=== PATIENT | male | born 1965 | race Caucasian/White ===

== ENCOUNTER 2016-05-27 07:26 | Day surgery (SDC) | payer BC, OTHER ==
[2016-05-23 15:14] VITALS: BMI 37.5
[~2016-05-27 07:26] MED LIST: LACTATED RINGERS 1,000 ML IV SCH
[2016-05-27 07:51] VITALS: TEMP 97.3
[2016-05-27] MEDS ORDERED: LIDOCAINE 1% 20 ML VIAL (10MG/ML) FOR IV START INTRADERMA ONE (07:52)
[2016-05-27 08:07] LABS: Glucose,Whole Blood 154 mg/dL (75-99)
[2016-05-27] MEDS ORDERED: PROPOFOL 10 MG/ML 20 ML VIAL IV ONE (08:19)
[2016-05-27] MEDS ORDERED: LIDOCAINE 1% INJ 10MG/ML (20 ML MDV) ONE (08:19)
--- NOTE | 2016-05-27 08:58 | P.PCN ---
Date of Procedure: 05/27/16 Procedure(s) Performed: Procedure: Colonoscopy and biopsy. Preoperative diagnosis: Screening for neoplasia. Postoperative diagnosis: 2 small polyps in the sigmoid and rectum biopsied but no large polyps or cancer. Preparation: HalfLytely prep. Sedation: Was provided by anesthesia. Brief clinical history: The patient is a 50-year-old male who is referred for this evaluation for screening for neoplasia age being his risk factor. He has no abdominal complaints, bleeding or anemia. No family history of colon cancer. This would be his first colonoscopy. Procedure: With the patient on his left lateral decubitus position and after informed consent and adequate sedation, the perianal area was inspected and it did not show any fissures or fistulas. There were no masses felt on digital rectal examination. The Olympus CFQ 160L video colonoscope was then inserted in the rectum in the usual fashion and advanced to the cecum. The preparation was less than ideal in the cecum with thick, sticky fecal secretions and debris that did not wash off totally despite prolonged cleaning. Elsewhere, the preparation was better and I was able to see 2 small polyps one in the sigmoid and one in the rectum which were biopsied but there were no large polyps or cancer. I retroflexed endoscope in the rectum before the endoscope was withdrawn. The patient tolerated the procedure well. Plan: The patient was reassured. In light of his less than ideal preparation in the cecum and the finding of small polyps today, I am recommending repeat exam in 3-5 years based on the pathology results. He will follow up with you as planned.
[2016-05-27 10:09] VITALS: BP 125/76; PULSE 77; RESP 18
== END 2016-05-27 09:41 | disposition home or self-care (01) ==
LOC: ORWHC2ENDO 07:26
DX: Z12.11 Encounter for screening for malignant neoplasm of colon (principal); K63.5 Polyp of colon; K62.1 Rectal polyp; I25.10 Atherosclerotic heart disease of native coronary artery without angina pectoris; I10 Essential (primary) hypertension; E78.5 Hyperlipidemia, unspecified; J44.9 Chronic obstructive pulmonary disease, unspecified; G47.33 Obstructive sleep apnea (adult) (pediatric); E11.9 Type 2 diabetes mellitus without complications; Z79.84 Long term (current) use of oral hypoglycemic drugs; E66.9 Obesity, unspecified; Z68.37 Body mass index [BMI] 37.0-37.9, adult; Z95.5 Presence of coronary angioplasty implant and graft; Z79.02 Long term (current) use of antithrombotics/antiplatelets; Z79.82 Long term (current) use of aspirin; Z79.899 Other long term (current) drug therapy
CPT/HCPCS: 88305; 45380; J2001; J2704; 99153

== ENCOUNTER → 2017-01-08 | Outpatient (CLI) | payer BC ==
--- NOTE | 2017-01-09 11:12 | CONS ---
DATE OF CONSULTATION: 01/08/2017 A 51-year-old gentleman had been evaluated in the sleep center for possible obstructive sleep apnea-hypopnea syndrome. HISTORY OF PRESENT ILLNESS/SLEEP-WAKE EVALUATION: SLEEP SCHEDULE: Patient's usual sleep schedule on working days from around 10 p.m. until 5:30 to 6:15 a.m. and on weekends from 11 p.m. until 6 or 7 a.m. FALLING ASLEEP: No problems with falling asleep. No TV in bedroom. DURING SLEEP: She usually sleeps on the side position. According to his , he has loud snoring and stopped breathing episodes during the sleep. Patient wakes up from sleep at least 2 times with nocturia, dry mouth, gasping for air, positive history of sleep talking. DURING THE DAY/WAKE STATE: In the morning, the patient wakes up tired. Has difficulties to pay attention, worry about his sleepiness and symptoms of irritability. Greenwood sleepiness scale is significantly increased to 14. MEDICATIONS: Symbicort, Ventolin, metformin, Januvia, ( ), metoprolol, clopidogrel, losartan. PAST MEDICAL HISTORY: Positive for coronary artery disease, status post stent insertion, hypertension, hyperlipidemia, diabetes mellitus. SOCIAL HISTORY: Positive for smoking for about 35 pack years, quit about 1-1/2 years ago. Alcohol consumption occasional. FAMILY HISTORY: Positive for significant sleep apnea by his father, hypertension, heart problems. PHYSICAL EXAM: A 51-year-old gentleman without distress. VITAL SIGNS: BP 122/68, HR 88, RR 16, height 5 feet 9-1/2 inches, weight 267, BMI 38.8. Neck 17 inches in circumference, temperature 98.3, oxygen saturation on room air 95%. HEENT: PERRLA. EOMI. Evaluation of the oropharynx extremely low position of soft palate. Mallampati 4. Restriction of nasal breathing bilaterally. NECK: Supple. No JVD. Thyroid is not palpable. LUNGS: Clear to percussion and to auscultation. Good air exchange. A few wheezing in the low level of lungs. HEART: S1, S2, regular. No murmurs, gallops or rubs. ABDOMEN: Obese. EXTREMITIES: 1+ bilateral ankle edema. DISABILITY REPRESENTATIVE:~ Awake, alert and oriented x3. Cranial nerves 2 to 7 intact. There is no fasciculation or atrophy noted. No focal deficits observed. IMPRESSION: 1. Snoring, witnessed episodes of stopped breathing during the sleep, extremely low position of soft palate, big neck, multiple awakenings from sleep, sleepiness during the day. Greenwood sleepiness scale increased to 14. Obstructive sleep apnea-hypopnea syndrome. 2. Obesity, body mass index 38.8. 3. Coronary artery disease, status post stent insertion. 4. Hypertension. 5. Hyperlipidemia. 6. Diabetes mellitus. 7. Allergic asthma. PLAN: 1. Polysomnography for evaluation of patient's breathing during sleep. 2. CPAP/BiPAP titration if sleep study confirms obstructive sleep apnea- hypopnea syndrome. 3. Preferable position during sleep on the side. 4. No driving if patient feels any sleepiness. Patient is aware of civil and criminal liability for unsafe driving. 5. I will see patient for follow-up visit to explained results of the testing and following plan. Thank you very much for referring this patient for consultation. Sincerely, Sacha Velasquez MD, PhD, FAASM Diplomat of [place] Of [place] Board of Sleep Medicine Sleep Medicine Board by [place] Board of Medical Specialities [place] Board of Internal Medicine Vault Attendant of [facility]
== END ==
LOC: SLEEP 15:55
PROVIDERS: ATTEND Internal Medicine
DX: G47.33 Obstructive sleep apnea (adult) (pediatric) (principal); E66.9 Obesity, unspecified; I10 Essential (primary) hypertension; I25.10 Atherosclerotic heart disease of native coronary artery without angina pectoris; E11.9 Type 2 diabetes mellitus without complications; E78.5 Hyperlipidemia, unspecified; J30.9 Allergic rhinitis, unspecified; Z79.899 Other long term (current) drug therapy; Z68.38 Body mass index [BMI] 38.0-38.9, adult
CPT/HCPCS: 99211

== ENCOUNTER → 2017-06-23 | Outpatient (CLI) | payer BC ==
[2017-06-23 16:03] LABS: Blood Urea Nitrogen 22 mg/dL (9-20)
--- NOTE | 2017-06-23 22:08 | CT ---
EXAMINATION TYPE: CT abdomen pelvis w con DATE OF EXAM: 06/23/2017 COMPARISON: NONE HISTORY: RLQ pain with urination changes CT DLP: 1738 mGycm, Automated Exposure Control for Dose Reduction was Utilized. CONTRAST: CT scan of the abdomen and pelvis is performed with oral and with IV Contrast, patient injected with 100 mL of Omnipaque 300. FINDINGS: LUNG BASES: There is lingular linear scarring and/or atelectasis axial image 13. LIVER/GB: No significant abnormality is appreciated. PANCREAS: No significant abnormality is seen. SPLEEN: No significant abnormality is seen. ADRENALS: No significant abnormality is seen. KIDNEYS: There are symmetric cortical medullary uptake and excretion from both kidneys without eviden ce of concerning renal mass or hydronephrosis bilaterally. No intraluminal calculus in the bladder is seen. A few scattered left-sided pelvic phleboliths are noted. BOWEL: The oral contrast does not reach level of terminal ileum making evaluation of distal bowel sub optimal. There is 1.7 cm diverticulum medially along second portion of duodenum seen best on coronal image 62. There is no suspicious small or large bowel dilatation. Appendix is small caliber without s urrounding inflammatory change extending inferiorly from base of cecum. There is some redundancy of s igmoid colon. PROSTATE/SEMINAL VESICLES: No gross abnormality seen. LYMPH NODES: No greater than 1cm abdominal or pelvic lymph nodes are appreciated. OSSEOUS STRUCTURES: There is fairly moderate spurring in the thoracolumbar spine. There is moderate d isc space narrowing with vacuum disc phenomenon lumbosacral junction. There is facet arthropathy lowe r lumbar levels greater on the right. OTHER: There is fairly moderate calcified plaque of the abdominal aorta extending into the iliac bran ch vessels. IMPRESSION: No significant acute finding is seen to account for patient's clinical symptoms of right lower quadrant pain and examination changes.
== END | disposition home or self-care (01) ==
LOC: RADCTMAIN 15:23
PROVIDERS: ATTEND Family Medicine
DX: R10.31 Right lower quadrant pain (principal)
CPT/HCPCS: 82565; 84520; 74177; 36415; Q9967

== ENCOUNTER → 2017-08-20 | Outpatient (CLI) | payer BC ==
--- NOTE | 2017-08-20 15:46 | SFUN ---
SLEEP STUDY FOLLOW UP NOTE DATE OF SERVICE: 08/20/2017 52-year-old gentleman who has been followed in Sleep Center for treatment of obstructive sleep apnea-hypopnea syndrome. Recently patient home sleep apnea test and CPAP titration and I discussed results of sleep studies with patient in details. He has severe sleep apnea and by results of titration, the best was BiPAP treatment. Today, is his first visit after he was started on treatment with BiPAP. I checked his BiPAP unit. Pressure is in the range up to 16 cm of water with a pressure support of 4 most of the time pressure in the range of 13.2/9.2. Leak is 29 L/minute which is borderline. Apnea-hypopnea index reading is 1.9 for the last month, which is totally normal. Usage is every night and / nights more than 4 hours, average 4.8 hours. Carlton Sleepiness Scale is 10. MEDICATIONS: Symbicort, Ventolin, Metformin, Januvia, atorvastatin, metoprolol, Plavix, losartan, Jardiance. PHYSICAL EXAM: GENERAL Patient in no distress. VITAL SIGNS BP 120/80, HR 79, RR 16, weight 254.0, temp 98.0. Oxygen saturation room air 95%. HEENT PERRLA, EOMI, evaluation of oropharynx showed moderately low position of soft palate. NECK Supple, no JVD. Thyroid is not palpable. LUNGS Clear to percussion and to auscultation. Good air exchange. No wheezing or rhonchi. HEART S1, S2 regular. No murmurs, gallops, or rubs. ABDOMEN Obese. Soft and nontender. Bowel sounds are present. No organomegaly appreciated. EXTREMITIES No clubbing or cyanosis. BORING MILL OPERATOR Awake, alert, and oriented X3. Cranial nerves 2 to 7 intact. There is no fasciculation or atrophy. noted. No focal deficits observed. IMPRESSION: 1. Severe obstructive sleep apnea-hypopnea syndrome on control with BiPAP. The patient demonstrated good compliance with treatment, benefitting from treatment. 2. Obesity. 3. Hypertension. 4. Coronary artery disease, status post stent insertion. 5. Hyperlipidemia. 6. Diabetes mellitus. 7. Allergic asthma. PLAN: 1. Patient will continue to use BiPAP equipment every night for the whole night. 2. Losing weight. 3. Sleep hygiene with regular time in bed for at least 8 hours. 4. No driving if feeling any sleepiness. 5. Patient quit smoking. No smoking. Thank you very much for allowing me to participate in management of your patient. Sincerely, Sacha Velasquez MD, PhD, FAASM Diplomat of [place] [employer] Medical Specialties [place] Board of Internal Medicine Mineralogy Professor of [facility] [place] MMODL / NISSAN: [id number] /
== END | disposition home or self-care (01) ==
LOC: SLEEP 14:02
PROVIDERS: ATTEND Internal Medicine
DX: G47.33 Obstructive sleep apnea (adult) (pediatric) (principal); E66.9 Obesity, unspecified; I10 Essential (primary) hypertension; I25.10 Atherosclerotic heart disease of native coronary artery without angina pectoris; E78.5 Hyperlipidemia, unspecified; E11.9 Type 2 diabetes mellitus without complications; J45.909 Unspecified asthma, uncomplicated; Z79.899 Other long term (current) drug therapy; Z99.89 Dependence on other enabling machines and devices; Z79.84 Long term (current) use of oral hypoglycemic drugs; Z79.51 Long term (current) use of inhaled steroids; Z79.02 Long term (current) use of antithrombotics/antiplatelets; Z95.5 Presence of coronary angioplasty implant and graft

== ENCOUNTER 2018-03-08 06:20 | Day surgery (SDC) | payer BC ==
[~2018-03-08 06:20] MED LIST changes: +ALPRAZolam 0.25 MG TAB PO PRN; +ALPRAZolam 0.5 MG TAB PO PRN; +ASPIRIN 325 MG TAB PO STA; +ATORVASTATIN 80 MG TAB PO STA; -LACTATED RINGERS 1,000 ML IV SCH; +NITROGLYCERIN SL TABS 0.4 MG TAB SUBLINGUAL PRN; +SODIUM CHLORIDE 0.9% 1,000 ML in EMPTY BAG 1 BAG IV ONE
[2018-03-08 07:03] LABS: Glucose,Whole Blood 127 mg/dL (75-99)
[2018-03-08] MEDS ORDERED: SODIUM CHLORIDE 0.9% 1,000 ML IV ONE (07:05)
[2018-03-08] MEDS ORDERED: VERAPAMIL 2.5 MG/ML 2 ML AMP ONE (07:27)
[2018-03-08] MEDS ORDERED: fentaNYL (PF) 50 MCG/ML 2 ML AMP ONE (07:27)
[2018-03-08] MEDS ORDERED: LIDOCAINE 1% INJ 10MG/ML (20 ML MDV) ONE (07:27)
[2018-03-08] MEDS ORDERED: fentaNYL (PF) 50 MCG/ML 2 ML AMP IV ONE (07:36)
[2018-03-08] MEDS ORDERED: LIDOCAINE 1% INJ 10MG/ML (20 ML MDV) SQ ONE (07:39)
[2018-03-08] MEDS ORDERED: VERAPAMIL SYRINGE (5 MG/10 ML) INTRAARTER ONE (07:41)
[2018-03-08] MEDS ORDERED: BIVALIRUDIN BOLUS 250 MG/50 ML IV ONE (07:50)
[2018-03-08] MEDS ORDERED: BIVALIRUDIN 250 MG in SODIUM CHLORIDE 0.9% 50 ML IV ONE (07:51)
[2018-03-08] MEDS ORDERED: NITROGLYCERIN 1000MCG/10ML SYRINGE INTRACORON ONE (08:00)
[2018-03-08] MEDS ORDERED: IOPAMIDOL-370 125ML BTL INJ ONE (08:01)
[2018-03-08] MEDS ORDERED: MORPHINE SULFATE 4 MG/ML SYRINGE ONE (08:04)
[2018-03-08] MEDS ORDERED: MORPHINE SULFATE 4 MG/ML SYRINGE IV ONE (08:06)
[2018-03-08] MEDS ORDERED: CLOPIDOGREL 75 MG TAB ONE (08:11)
[2018-03-08] MEDS ORDERED: IOPAMIDOL-370 100ML BTL INJ ONE (08:12)
[2018-03-08] MEDS ORDERED: CLOPIDOGREL 75 MG TAB PO ONE (08:12)
[2018-03-08] MEDS ORDERED: MAG HYDROX/AL HYDROX/SIMETH 30 ML CUP PO PRN (08:28)
[2018-03-08] MEDS ORDERED: RX INFO: IV CONTRAST WAS GIVEN 1 EACH MISC MISCELLANE PRN (08:28)
[2018-03-08] MEDS ORDERED: ZOLPIDEM 5 MG TAB PO PRN (08:28)
[2018-03-08] MEDS ORDERED: ATROPINE SULFATE 0.1 MG/ML 10ML SYRINGE IV PRN (08:28)
[2018-03-08] MEDS ORDERED: NITROGLYCERIN SL TABS 0.4 MG TAB SUBLINGUAL PRN ×2 (08:28→08:30)
[2018-03-08] MEDS ORDERED: SYMBICORT 160-4.5 MCG INHALER INHALATION PRN (08:30)
[2018-03-08] MEDS ORDERED: SODIUM CHLORIDE 0.9% 1,000 ML IV SCH (08:30)
--- NOTE | 2018-03-08 08:34 | CC ---
CARDIAC CATHETERIZATION REPORT Mr. Lyon is a 52-year-old male with known history of hypertension, hyperlipidemia, diabetes mellitus, history of coronary artery disease, status post stenting of the LAD in 2015, who presented with symptoms of chest discomfort of new onset, reminding him of the symptoms he had prior to the stenting. In view of that, recommendation made regarding cardiac catheterization, the procedures, risks and complication were discussed with the patient who is in full understanding and agreement. PROCEDURE: Patient was brought to the labeling machine operator in a fasting semi-sedated state after receiving fentanyl and Benadryl and achieving moderate conscious sedated state. Using Xylocaine anesthesia, Seldinger technique, a 6-[place] Citizen sheath was introduced in the right radial artery. Selective right and left angiography performed using 5-[place] Citizen 3.5 bend right and left May catheter. Multiple views of the coronary artery including hemiaxial views obtained. Following that, angioplasty and stenting was performed. Following that, a 5-[place] Citizen tight pigtail catheter was introduced into the left ventricle and a 30 degree COLBY view of the left ventricle was obtained. Following that, the catheter and sheath were removed, hemostasis was obtained with deployment of a TR band. There was no immediate complication. Patient is returned to his room in stable condition. Of note, patient received Angiomax per protocol during the angioplasty and intra-arterial verapamil. FINDINGS: LEFT MAIN: This is a large-sized vessel, bifurcating into left circumflex, left anterior descending artery. The left main coronary artery has no evidence of high- grade stenosis. LEFT ANTERIOR DESCENDING ARTERY: This is a large-sized vessel, reaching toward the apex with a wraparound apex segment, giving rise to a moderately sized proximal LAD. The stented segment in the mid LAD has a 20% in-stent restenosis. The rest of the vessel has no high-grade stenosis. LEFT CIRCUMFLEX: This is a codominant vessel, large in caliber giving rise to a very proximal obtuse marginal branch of large size. After the takeoff of the first obtuse marginal branch, there is a 90% eccentric lesion. Beyond that, there is a second small obtuse marginal branch and then the vessel bifurcating into PDA and PLV and has no evidence of high-grade stenosis. RIGHT CORONARY ARTERY: This is a codominant vessel, moderate in caliber giving rise to a right PDA. The right coronary artery proximally has a 30% plaque. The rest of the vessel has no high-grade stenosis. LEFT VENTRICULOGRAM: Left ventriculogram was performed in 30 degree COLBY view and revealed a normal ventricular size and systolic function. Ejection fraction is 60%. There was no significant mitral regurgitation. HEMODYNAMICS: There was no gradient across the aortic valve. The left ventricle end- diastolic pressure was 16-20 mmHg. CONCLUSION: 1. Critical stenosis involving the proximal left circumflex that progressed since 2014. 2. Mild intimal restenoses in the left anterior descending artery at the site of the prior stenting. 3. Mild disease in the right coronary artery. 4. Normal left ventricular size and systolic function. RECOMMENDATION: In view of finding anatomy, recommendation was made regarding angioplasty and stenting. The procedures, risks and complications were discussed with the patient who is in full understanding and agreement. MMODL / IJN: [id number] /
--- NOTE | 2018-03-08 08:49 | CC ---
CARDIAC CATHETERIZATION REPORT Mr. Lyon is a 52-year-old male who has a known history of coronary artery disease who presented with recent onset chest discomfort, underwent cardiac catheterization, was found to have critical stenosis involving the proximal left circumflex. In view of that, recommendation made regarding angioplasty and stenting. The procedures, risks and complication were discussed with the patient who is in full understanding and agreement. PROCEDURE: A 6-[place] 3.5 guiding catheter introduced into the system after cannulating the left main. A 0.014 balanced medium weight J-wire was advanced in position in the distal left circumflex. Following that a 4.0 x 15 mm Xience Lea stent was deployed, postdilated at 16 atmospheres. After the last inflation, after appropriate wait , the balloon and the guidewire were withdrawn back in the guiding catheter. Images were obtained and repeated. Those images reveal stable successful stenting. At that point, the guiding catheter, the balloon and the guidewire removed. Left ventriculogram was performed. Following that, the sheath was removed and catheter were removed and hemostasis was obtained with deployment of a TR band. There was no immediate complication patient is returned to his room in stable condition. Of note, the patient received Angiomax per protocol. He had chest discomfort and EKG changes with the inflation that resulted in procedure. RESULTS: Successful stenting of the proximal left circumflex with reduction of stenosis from 90% to 0%. RECOMMENDATION: Patient be continued on aspirin, Plavix and statin. The importance of dual antiplatelet treatment were discussed with the patient and his family who are in full understanding and agreement. Duration of the procedure 31 minute. MMWIL / NISSAN: [id number] / Shayan#: [id number] LINDEN
--- NOTE | 2018-03-08 09:16 | LTR ---
DATE OF SERVICE: 03/08/2018: RE: Jason Lyon Dear Dr. Childers; I had the pleasure to perform cardiac catheterization, coronary angioplasty and stenting on Mr. Lyon on March 08, 2018 and a full copy of the procedure note will be forwarded to you. In brief, he was found to have critical stenosis involving the proximal left circumflex with no significant restenoses in the LAD and in view of that he underwent successful stenting of that vessel. I am hopeful that this procedure will stabilize his status and thank you again for allowing me to participate in this patient's care. Please feel free to call for any questions. Sincerely yours, MD RONDA Edwards / RAAD: [id number] /
[2018-03-08] MEDS ORDERED: LOSARTAN 25 MG TAB PO SCH (10:15)
[2018-03-08] MEDS: METOPROLOL TARTRATE 25 MG TAB PO SCH ×2 (11:44→20:27)
[2018-03-08 15:03] VITALS: BMI 35.6
[2018-03-08 20:38] VITALS: RESP 18
[2018-03-09 03:12] VITALS: TEMP 97
[2018-03-09 06:14] VITALS: BP 126/75; PULSE 70
[2018-03-09 07:10] LABS: Anion Gap 6 mmol/L; Blood Urea Nitrogen 15 mg/dL (9-20); Calcium 8.8 mg/dL (8.4-10.2); Carbon Dioxide 26 mmol/L (22-30); Chloride 107 mmol/L (98-107); Glucose 105 mg/dL (74-99); Potassium 4.4 mmol/L (3.5-5.1); Sodium 139 mmol/L (137-145)
[2018-03-09] MEDS ORDERED: CLOPIDOGREL 75 MG TAB PO SCH (09:00)
[2018-03-09] MEDS ORDERED: ATORVASTATIN 80 MG TAB PO SCH (09:00)
[2018-03-09] MEDS ORDERED: LINAGLIPTIN 5 MG TABLET PO SCH (09:00)
[2018-03-09] MEDS ORDERED: ASPIRIN 81 MG PO SCH (09:00)
[2018-03-09] MEDS ORDERED: NON-FORMULARY DRUG (Empagliflozin [Jardiance] 25 MG) PO SCH (09:00)
--- NOTE | 2018-03-09 10:46 | PN ---
PROGRESS NOTE Mr. Lyon is a 52-year-old male with known history of coronary artery disease, hypertension, hyperlipidemia, and diabetes mellitus who presented with symptoms of angina pectoris, underwent cardiac catheterization, was found to have progression of disease in the left circumflex, underwent successful stenting of that vessel. He is doing well this morning. Denying any chest pain. Ambulating without difficulty. Denying any dizziness, palpitation, or syncope. He continues to be on aspirin 81 mg daily, Lipitor 80 mg daily, Plavix 75 mg daily, Jardiance 25 mg daily, Tradjenta 5 mg daily, Cozaar 25 mg daily, metoprolol tartrate 25 mg twice a day. PHYSICAL EXAMINATION: Blood pressure 126/70 with the heart rate in the 70s. LUNGS: Clear. HEART: Regular rate and rhythm. S1, S2. No S3. No rub. ABDOMEN: Soft, nontender. EXTREMITIES: No edema. Right radial pulse intact. LAB DATA: Lab data revealed BUN and creatinine 15 and 0.54. Potassium 4.4. IMPRESSION: 1. Status post stenting of the left circumflex. 2. Hypertension. 3. Hyperlipidemia. 4. Diabetes mellitus. RECOMMENDATION: Patient will be discharged home today and followed as an outpatient. MMODL / IJN: [id number] /
== END 2018-03-09 08:42 | disposition home or self-care (01) ==
LOC: CATHCVL 06:20 → 3SCARD 08:08 → CATHCVL 03-09 08:42
PROVIDERS: ATTEND Internal Medicine Interventional Cardiology
DX: I25.110 Atherosclerotic heart disease of native coronary artery with unstable angina pectoris (principal); T82.855A Stenosis of coronary artery stent, initial encounter; I10 Essential (primary) hypertension; Z87.891 Personal history of nicotine dependence; E78.2 Mixed hyperlipidemia; E11.9 Type 2 diabetes mellitus without complications; Z82.49 Family history of ischemic heart disease and other diseases of the circulatory system; Z79.84 Long term (current) use of oral hypoglycemic drugs; Z79.02 Long term (current) use of antithrombotics/antiplatelets; Z79.82 Long term (current) use of aspirin; Z79.899 Other long term (current) drug therapy
CPT/HCPCS: 93458; 80048; C9600; C1769 ×2; C1887; C1894; C1874; J2270; J2001; J3010; J0583; Q9967 ×2

== ENCOUNTER → 2018-05-12 | Outpatient (CLI) | payer BC ==
--- NOTE | 2018-05-12 15:50 | XR ---
Pre-MRI orbits HISTORY: Foreign body 3 views of the orbits are submitted. No comparisons No radiopaque foreign body evident. Bone mineralization is maintained. Paranasal sinuses as visualize d are normal. IMPRESSION: No counterindication to MRI is evident.
--- NOTE | 2018-05-12 22:39 | MR ---
EXAMINATION TYPE: MR knee RT wo con DATE OF EXAM: 05/12/2018 COMPARISON: NONE HISTORY: Rt knee pain x 6 mos, no trauma per patient. Right knee pain and anterior horn medial menisc al derangement per order. TECHNIQUE: Multiplanar, multisequence images of the knee is performed without IV contrast. FINDINGS: MEDIAL MENISCUS: Anterior horn is intact without tear. Posterior horn is seen emaciated with increase d signal extending to inferior articular surface and irregular contour consistent with full-thickness meniscal tear. LATERAL MENISCUS: Anterior and posterior horns are intact without tear. CRUCIATE LIGAMENTS: The anterior and posterior cruciate ligaments are intact and unremarkable. COLLATERAL LIGAMENTS: The medial collateral ligament and lateral collateral ligament complex are inta ct. Mild fluid signal surrounds the medial collateral ligament superficial fibers. EXTENSOR MECHANISM: Visualized quadriceps and patellar tendons are intact. EFFUSION: There are small to moderate size suprapatellar joint effusion. POPLITEAL CYST: There is moderate size popliteal/cabrera cyst measuring 6.1 cm sagittal image 9. TRICOMPARTMENT SPACES: Mild to moderate tricompartment joint space loss with mild spurring is seen. CARTILAGE: There is chondromalacia patella with full-thickness cartilaginous loss along posterior pat ellar pole identified superiorly. There is near full-thickness cartilaginous loss medial tibiofemoral compartment. BONE MARROW SIGNAL: Diffuse heterogeneous increased T2 signal consistent with osseous contusion and/o r bone marrow edema involving the medial tibial plateau and adjacent distal medial femoral condyle po sterior aspect. OTHER: No additional significant abnormality is appreciated. IMPRESSION: 1. Complex full-thickness tear posterior horn medial meniscus. 2. Background moderate degenerative changes patellofemoral and medial tibiofemoral compartments as de tailed above. 3. Mild MCL sprain injury. 4. Moderate-sized popliteal cyst. 5. Small to moderate size suprapatellar joint effusion. 6. Reactive bone marrow edema or osseous contusion medial tibial femoral compartment.
== END ==
LOC: RADMRIMAIN 14:59
PROVIDERS: ATTEND Family Medicine
DX: S83.231A Complex tear of medial meniscus, current injury, right knee, initial encounter (principal); M17.11 Unilateral primary osteoarthritis, right knee; S89.91XA Unspecified injury of right lower leg, initial encounter; M71.21 Synovial cyst of popliteal space [Baker], right knee; Z13.5 Encounter for screening for eye and ear disorders
CPT/HCPCS: 70030

== ENCOUNTER → 2019-07-08 | Outpatient (CLI) | payer OTHER ==
--- NOTE | 2019-07-08 14:59 | US ---
EXAMINATION TYPE: US abdomen complete DATE OF EXAM: 07/08/2019 COMPARISON: CT 06/23/17 CLINICAL HISTORY: R19.10 RUQ MASS. EXAM MEASUREMENTS: Liver Length: 20.7 cm Gallbladder Wall: 0.2 cm CBD: 0.3 cm Spleen: 11.3 cm Right Kidney: 13.0 x 6.7 x 5.5 cm Left Kidney: 13.1 x 7.0 x 6.7 cm Pancreas: Obscured by bowel gas Liver: Increased attenuation, decreased visualization of vessels suggestive of fatty infiltrate, Enl arged size. Focal sparing seen near GB. Gallbladder: wnl Evidence for sonographic Layne's sign: No CBD: wnl Spleen: wnl Right Kidney: wnl Left Kidney: wnl Upper IVC: Obscured by overlying bowel gas Abd Aorta: Obscured by overlying bowel gas Area of lump, superficial RUQ = 4.5 x 2.3 x 1.6 cm ? Lipoma IMPRESSION: 1. Fatty infiltration liver. Hepatomegaly. #2 subcutaneous focal hyper anechoic collection may be a l ipoma. Monitoring is recommended.
== END | disposition home or self-care (01) ==
LOC: RADUSWWP 07:25
PROVIDERS: ATTEND Surgery
DX: K76.0 Fatty (change of) liver, not elsewhere classified (principal); R16.0 Hepatomegaly, not elsewhere classified
CPT/HCPCS: 76700

== ENCOUNTER → 2019-07-25 | Outpatient (CLI) | payer OTHER ==
[2019-07-25 13:22] LABS: African American GFR (CKD) >90 (>60 ml/min/1.73 sqM); Blood Urea Nitrogen 12 mg/dL (9-20); Non-African American GFR(CKD) >90 (>60 ml/min/1.73 sqM)
--- NOTE | 2019-07-25 14:45 | CT ---
EXAMINATION TYPE: CT abdomen w con DATE OF EXAM: 07/25/2019 COMPARISON: 06/23/2017 HISTORY: 53-year-old male Right upper quadrant mass TECHNIQUE: Contiguous axial scanning of the abdomen and pelvis following administration of 100 ml Omn ipaque 300 IV contrast. Delayed images through the kidneys and coronal/sagittal reconstructions perf ormed. CT DLP: 2308.5 mGycm Automated exposure control for dose reduction was used. FINDINGS: LUNG BASES: Band of atelectasis peripheral left base. No pleural effusion. LIVER/GB: Liver enlarged at 20.0 cm with low-attenuation suggesting fatty infiltration. Portal venous system is patent. No biliary ductal dilatation. Multiple diverticulum of the second portion of the d uodenum projecting into the pancreatic head region. PANCREAS: No significant abnormality is seen. SPLEEN: No significant abnormality is seen. ADRENALS: No significant abnormality is seen. KIDNEYS: No significant abnormality is seen. BOWEL: Normal appendix partially visualized. Mild stool in the right side of the colon. No pericolon ic inflammatory change. LYMPH NODES: No mesenteric or retroperitoneal lymphadenopathy. Moderate atherosclerotic calcification s abdominal aorta and visualized common iliac arteries. Pelvis not imaged. BONES: Advanced degenerative disc disease and hypertrophic facet arthropathy L5-S1. There may be gerardo re bilateral neuroforaminal stenosis here. IMPRESSION: 1. 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 CORRELATE WITH LFT's, LIVER PROFILE, AND PATIENT RI SK FACTORS. 2. PELVIS NOT IMAGED.
== END | disposition home or self-care (01) ==
LOC: RADCTMAIN 12:31
PROVIDERS: ATTEND Surgery
DX: K76.0 Fatty (change of) liver, not elsewhere classified (principal); R16.0 Hepatomegaly, not elsewhere classified
CPT/HCPCS: 82565; 84520; 74160; 36415; Q9967

== ENCOUNTER → 2019-09-23 | Outpatient (CLI) | payer OTHER | END | disposition home or self-care (01) | LOC: LABWHC1 10:21 | PROVIDERS: ATTEND Surgery | DX: U07.1 COVID-19 (principal) | CPT/HCPCS: 87635 ==

== ENCOUNTER 2019-09-27 09:27 | Day surgery (SDC) | payer OTHER ==
[2019-09-26 10:26] VITALS: BMI 38.4
[~2019-09-27 09:27] MED LIST changes: -ALPRAZolam 0.25 MG TAB PO PRN; -ALPRAZolam 0.5 MG TAB PO PRN; -ASPIRIN 325 MG TAB PO STA; -ATORVASTATIN 80 MG TAB PO STA; +DEXAMETHASONE SOD PHOSPHATE 10 MG/ML 1 ML VIAL IV ONE; +HEPARIN SODIUM,PORCINE 5,000 UNIT/ML 1 ML VIAL SQ ONE; +HYDROmorphone 0.5 MG/0.5 ML SYRINGE IVP PRN; +LACTATED RINGERS 1,000 ML IV SCH; +LIDOCAINE 1% (10MG/ML) FOR IV START INTRADERMA PRN; -NITROGLYCERIN SL TABS 0.4 MG TAB SUBLINGUAL PRN; +ONDANSETRON 4 MG/2 ML VIAL IVP ONE; +Pre Op ABX Message 1 EACH MISC MISCELLANE ONE; +SCOPOLAMINE 1.5MG/72HR PATCH TRANSDERM ONE; -SODIUM CHLORIDE 0.9% 1,000 ML in EMPTY BAG 1 BAG IV ONE
[2019-09-27 10:32] LABS: Glucose,Whole Blood 199 mg/dL (75-99)
[2019-09-27] MEDS ORDERED: METOPROLOL TARTRATE 5 MG/5 ML VIAL IVP ONE ×2 (10:47→11:36)
--- NOTE | 2019-09-27 11:32 | P.GSHP ---
History of Present Illness H&P Date: 09/27/19 Chief Complaint: Abdominal wall mass 54-year-old male here today for excision right upper quadrant abdominal wall mass. This was noticed several months ago. Patient had both an ultrasound and a CAT scan performed. Ultrasound suggested possible lipoma. CAT scan report did not mention the mass however you can see the mass she does have a lipomatous appearance beneath the anterior rectus fascia. Some irregular shape is noted. Posterior fascia seems intact. Patient says it has enlarged slightly. Mild pain at times. Denies trauma. Past Medical History Past Medical History: COPD, Diabetes Mellitus, Hyperlipidemia, Hypertension, Sleep Apnea/CPAP/BIPAP Additional Past Medical History / Comment(s): uses CPAP, currently taking antibiotic for fish hook injury to finger that got infected-much better now per pt. History of Any Multi-Drug Resistant Organisms: None Reported Past Surgical History: Heart Catheterization With Stent Additional Past Surgical History / Comment(s): DENTAL PROCEDURES, colonoscopy Past Anesthesia/Blood Transfusion Reactions: No Reported Reaction Date of Last Stent Placement:: 2017 Smoking Status: Current every day smoker - Past Family History Mother Family Medical History: Cancer Additional Family Medical History / Comment(s): BRAIN Medications and Allergies Home Medications Medication Instructions Recorded Confirmed Type Budesonide-Formot 160-4.5 Mcg 2 puff INHALATION DAILY 10/20/14 09/27/19 History [Symbicort 160-4.5 Mcg Inhaler] Metoprolol Tartrate 25 mg PO BID #0 10/24/14 09/27/19 Rx Aspirin 81 mg PO BID 05/23/16 09/27/19 History Atorvastatin [Lipitor] 80 mg PO QAM 05/23/16 09/27/19 History Losartan Potassium [Cozaar] 100 mg PO DAILY 05/23/16 09/27/19 History metFORMIN HCL [Glucophage] 500 mg PO QAM 05/23/16 09/27/19 History Albuterol Inhaler (Mhu) [Ventolin 1 - 2 puff INHALATION RT-Q6H PRN 03/03/18 09/27/19 History Hfa Inhaler] Empagliflozin [Jardiance] 25 mg PO DAILY 03/03/18 09/27/19 History metFORMIN HCL [Glucophage] 1,000 mg PO HS 03/03/18 09/27/19 History sitaGLIPtin [Januvia] 100 mg PO DAILY 03/03/18 09/27/19 History Sulfamethox-Tmp 800-160Mg [Bactrim 1 tab PO Q12HR 09/26/19 09/27/19 History DS 800-160 mg] amLODIPine [Norvasc] 5 mg PO DAILY 09/26/19 09/27/19 History Allergies Allergy/AdvReac Type Severity Reaction Status Date / Time No Known Allergies Allergy Verified 09/26/19 10:26 Surgical - Exam Vital Signs Temp Pulse Resp BP Pulse Ox 97 F L 83 16 196/94 96 09/27/19 10:15 09/27/19 10:15 09/27/19 10:15 09/27/19 10:15 09/27/19 10:15 Physical exam: General: Well-developed, well-nourished HEENT: Normocephalic, sclerae nonicteric Abdomen: Nontender, nondistended, mass right upper quadrant measuring 3 x 4 cm with Flexation of abdominal wall musculature Extremities: No edema Neuro: Alert and oriented Results - Labs Abnormal Lab Results - Last 24 Hours (Table) 09/27/19 Range/Units 10:13 POC Glucose (mg/dL) 199 H (75-99) mg/dL Assessment and Plan (1) Abdominal wall mass Narrative/Plan: We'll proceed with surgical excision abdominal wall mass. Etiology possibilities discussed in detail. Potential need for additional surgery noted. Additional risks of bleeding, infection, hernia, recurrence, scarring, numbness, possible need for mesh placement reviewed. He understands and wishes to proceed. Current Visit: Yes Status: Inactive Code(s): R22.2 - LOCALIZED SWELLING, MASS AND LUMP, TRUNK SNOMED Code(s): 029619837
[2019-09-27] MEDS ORDERED: ROCURONIUM BROMIDE 10 MG/ML 5 ML VIAL IV ONE (11:36)
[2019-09-27] MEDS ORDERED: PROPOFOL 10 MG/ML 20 ML VIAL IV ONE (11:36)
[2019-09-27] MEDS ORDERED: KETOROLAC 30 MG/ML 1 ML VIAL ONE (11:36)
[2019-09-27] MEDS ORDERED: MIDAZOLAM 2 MG/2 ML VIAL ONE (11:36)
[2019-09-27] MEDS ORDERED: LIDOCAINE 1% INJ 10MG/ML (20 ML MDV) ONE (11:36)
[2019-09-27] MEDS ORDERED: fentaNYL (PF) 50 MCG/ML 2 ML AMP ONE (11:36)
[2019-09-27] MEDS ORDERED: SUCCINYLCHOLINE CHLORIDE VIAL 200 MG/10 ML VIAL IV ONE (11:36)
[2019-09-27] MEDS ORDERED: BUPIVACAIN-EPI 0.25%-1:200,000 30 ML VIAL SQ ONE (11:42)
[2019-09-27] MEDS ORDERED: ceFAZolin 1,000 MG VIAL IVPB ONE (11:55)
[2019-09-27] MEDS ORDERED: LACTATED RINGERS 1,000 ML IV ONE (12:21)
[2019-09-27] MEDS ORDERED: NALOXONE 0.4 MG/ML 1 ML VIAL IV PRN (12:31)
[2019-09-27] MEDS ORDERED: HYDROcodone/APAP 5-325MG 1 EACH TAB PO PRN (12:31)
--- NOTE | 2019-09-27 12:33 | P.OP ---
Date of Procedure: 09/27/19 Procedure(s) Performed: PREOPERATIVE DIAGNOSIS: Right upper quadrant abdominal wall mass POSTOPERATIVE DIAGNOSIS: Subfascial lipomatous mass 4 x 4 x 3 cm PROCEDURE: Excision subfascial mass, intermediate closure SURGEON: Martin EBL: 2 mL ANESTHESIA: General COMPLICATIONS: None OPERATIVE PROCEDURE: Patient was placed in the operating table in the supine position. The patient's abdomen was prepped and draped sterilely. A transverse incision was made overlying the palpable mass. Dissection through the islas bcutaneous tissues took place using electrocautery. The fascia was incised transversely at that time. The mass appeared lipomatous. It was in the midst of the rectus musculature. It did not penetrate the posterior rectus fascia. This mass measured 4 x 4 x 3 cm. No further lipomatous tissue was seen. The fascia was reapproximated using a running 0 Vicryl suture. The subcutaneous tissues were closed using 3-0 Vicryl sutures. The skin was closed using a running 4-0 Monocryl subcuticular suture. Length of closure 5 cm. Skin glue applied. DISPOSITION: Stable to recovery room
[2019-09-27 12:45] LABS: Glucose,Whole Blood 204 mg/dL (75-99)
[2019-09-27 12:46] VITALS: TEMP 97.6
[2019-09-27] MEDS ORDERED: INSULIN ASPART (NovoLOG) 100 UNIT/ML VIAL SQ ONE (13:05)
[2019-09-27 13:22] VITALS: RESP 18
[2019-09-27 13:32] LABS: Glucose,Whole Blood 215 mg/dL (75-99)
[2019-09-27 13:40] VITALS: BP 157/89; PULSE 77
== END 2019-09-27 13:54 | disposition home or self-care (01) ==
LOC: OR 09:27
PROVIDERS: ATTEND Surgery
DX: D17.9 Benign lipomatous neoplasm, unspecified (principal); J44.9 Chronic obstructive pulmonary disease, unspecified; E11.9 Type 2 diabetes mellitus without complications; E78.5 Hyperlipidemia, unspecified; I10 Essential (primary) hypertension; G47.33 Obstructive sleep apnea (adult) (pediatric); I25.10 Atherosclerotic heart disease of native coronary artery without angina pectoris; N28.9 Disorder of kidney and ureter, unspecified; S61.249 Puncture wound with foreign body of unspecified finger without damage to nail; F17.210 Nicotine dependence, cigarettes, uncomplicated; Z99.89 Dependence on other enabling machines and devices; Z95.5 Presence of coronary angioplasty implant and graft; Z98.890 Other specified postprocedural states; Z80.8 Family history of malignant neoplasm of other organs or systems; Z79.51 Long term (current) use of inhaled steroids; Z79.82 Long term (current) use of aspirin; Z79.899 Other long term (current) drug therapy; Z79.84 Long term (current) use of oral hypoglycemic drugs; W45.8XXD Other foreign body or object entering through skin, subsequent encounter
CPT/HCPCS: 22901; J2250; J0330; J1644; J1100; J2405; J0690; J2001; J3010; J1885; J2704; 88304

== ENCOUNTER → 2023-06-25 | Outpatient (CLI) | payer OTHER ==
--- NOTE | 2023-06-26 06:11 | CTL ---
EXAMINATION TYPE: CT Low Dose Lung DATE OF EXAM ORDERED: 06/25/2023 HISTORY: 57M. Lung cancer screening CT DLP: [address] CTDI: 3.06 mGy SCREENING VISIT: Yes COMPARISON: None TECHNIQUE: Low dose computed tomography scan was performed through the chest at 1 mm thick sections a nd reconstructed images in multiple planes at 1 mm and 5 mm thick sections. Automated exposure contro l for dose reduction was used. CT DIAGNOSTIC QUALITY: Satisfactory FINDINGS: LUNG NODULES: None. LUNGS: COPD: None Fibrosis: A few bilateral scattered small linear bands of atelectasis and/or scarring noted. Lymph nodes: No greater than 1 cm short axis lymph nodes. Other findings: Mild diffuse bronchial wall thickening noted. RIGHT PLEURAL SPACE: Effusion: None Calcification: None Thickening: None Pneumothorax: None LEFT PLEURAL SPACE: Effusion: None Calcification: None Thickening: None Pneumothorax: None HEART: Heart Size: Normal Coronary Calcification: Prominent multivessel left and right coronary calcifications. Pericardial Effusion: None OTHER FINDINGS: Upper abdomen: None Bony thorax: None Supraclavicular region: None Other: None IMPRESSION: Limited category 2/S. CT LUNG RAD AND CT CHEST RECOMMENDATION: 12 month follow-up CT S Modifier (other clinically significant findings): Prominent coronary calcifications.
== END | disposition home or self-care (01) ==
LOC: RADCTMAIN 17:03
PROVIDERS: ATTEND Internal Medicine
DX: Z12.2 Encounter for screening for malignant neoplasm of respiratory organs (principal); F17.210 Nicotine dependence, cigarettes, uncomplicated
CPT/HCPCS: 71271

== ENCOUNTER 2023-08-21 10:25 | Emergency (ER) | payer OTHER ==
[2023-08-21 10:51] LABS: Glucose,Whole Blood 197 mg/dL (70-110)
--- NOTE | 2023-08-21 10:57 | ED ---
General Adult HPI - General Chief complaint: Neuro Symptoms/Deficit Stated complaint: Possible stroke Time Seen by Provider: 08/21/23 10:35 Source: patient, RN notes reviewed, old records reviewed Mode of arrival: ambulatory Limitations: no limitations - History of Present Illness Initial comments: This is a 58-year-old male who presents to the emergency department complaining that for a few weeks now he has had intermittent episodes of double vision. Patient states he comes last for less than a minute and goes away. Patient states he also can make it go away if he shuts one of his eyes. Patient states he went and saw Dr. South he sent him to the eye doctor and the eye doctor evaluated the patient today and sent him in to rule out stroke. Patient denies any numbness weakness. Patient has a headache. Patient Nuys any slurred speech. Patient denies any recent fever chills or cough. Patient currently has no complaints and has no double vision. Patient states he has diabetes high blood pressure high cholesterol and smokes. Patient also states has had coronary artery disease with stent placement. Patient also states he has had a stroke in the past - Related Data Home Medications Medication Instructions Recorded Confirmed Budesonide-Formot 160-4.5 Mcg 2 puff INHALATION DAILY 10/20/14 09/27/19 [Symbicort 160-4.5 Mcg Inhaler] Aspirin 81 mg PO BID 05/23/16 09/27/19 Atorvastatin [Lipitor] 80 mg PO QAM 05/23/16 09/27/19 Losartan Potassium [Cozaar] 100 mg PO DAILY 05/23/16 09/27/19 metFORMIN HCL [Glucophage] 500 mg PO QAM 05/23/16 09/27/19 Albuterol Inhaler [Ventolin Hfa 1 - 2 puff INHALATION RT-Q6H PRN 03/03/18 09/27/19 Inhaler] Empagliflozin [Jardiance] 25 mg PO DAILY 03/03/18 09/27/19 metFORMIN HCL [Glucophage] 1,000 mg PO HS 03/03/18 09/27/19 sitaGLIPtin [Januvia] 100 mg PO DAILY 03/03/18 09/27/19 Sulfamethox-Tmp 800-160Mg [Bactrim 1 tab PO Q12HR 09/26/19 09/27/19 DS 800-160 mg] amLODIPine [Norvasc] 5 mg PO DAILY 09/26/19 09/27/19 Previous Rx's Medication Instructions Recorded Metoprolol Tartrate 25 mg PO BID #0 10/24/14 Allergies Allergy/AdvReac Type Severity Reaction Status Date / Time No Known Allergies Allergy Verified 08/21/23 10:33 Review of Systems ROS Statement: Those systems with pertinent positive or pertinent negative responses have been documented in the HPI. ROS Other: All systems not noted in ROS Statement are negative. Past Medical History Past Medical History: COPD, Diabetes Mellitus, Hyperlipidemia, Hypertension Additional Past Medical History / Comment(s): STATES HAS UNDIAGNOSED SLEEP APNEA History of Any Multi-Drug Resistant Organisms: None Reported Past Surgical History: Heart Catheterization With Stent Additional Past Surgical History / Comment(s): DENTAL PROCEDURES ONLY Past Anesthesia/Blood Transfusion Reactions: No Reported Reaction Date of Last Stent Placement:: 2014 Past Psychological History: No Psychological Hx Reported Smoking Status: Current every day smoker Past Alcohol Use History: Heavy, Occasional Past Drug Use History: None Reported - Past Family History Mother Family Medical History: Cancer Additional Family Medical History / Comment(s): BRAIN General Exam - General Exam Comments Initial Comments: GENERAL: Patient is well-developed and well-nourished. Patient is nontoxic and well- hydrated and is in no acute distress. ENT: Neck is soft and supple. No significant lymphadenopathy is noted. Oropharynx is clear. Moist mucous membranes. Neck has full range of motion without eliciting any pain. There is no thyroid enlargement and no masses were felt. EYES: The sclera were anicteric and conjunctiva were pink and moist. Extraocular movements were intact and pupils were equal round and reactive to light. Eyelids were unremarkable. PULMONARY: Unlabored respirations. Good breath sounds bilaterally. No audible rales rhonchi or wheezing was noted. CARDIOVASCULAR: There is a regular rate and rhythm without any murmurs gallops or rubs. Femoral pulses are equal bilaterally ABDOMEN: Soft and nontender with normal bowel sounds. No palpable organomegaly was noted. There is no palpable pulsatile mass. SKIN: Skin is clear with no lesions or rashes and otherwise unremarkable. NEUROLOGIC: Patient is alert and oriented x3. Cranial nerves II through XII are grossly intact. Motor and sensory are also intact. Normal speech, volume and content. Symmetrical smile. Cerebellar exam grossly intact. NIH is 0 MUSCULOSKELETAL: Normal extremities with adequate strength and full range of motion. No lower extremity swelling or edema. No calf tenderness. LYMPHATICS: No significant lymphadenopathy is noted PSYCHIATRIC: Normal psychiatric evaluation. Limitations: no limitations Course Vital Signs 08/21/23 08/21/23 08/21/23 10:29 11:06 12:37 Temperature 97.9 F Pulse Rate 82 65 85 Respiratory 16 18 18 Rate Blood Pressure 176/94 144/87 152/82 O2 Sat by Pulse 96 99 97 Oximetry 08/21/23 13:02 Temperature 98 F Pulse Rate 85 Respiratory 18 Rate Blood Pressure 150/77 O2 Sat by Pulse 99 Oximetry Medical Decision Making - Medical Decision Making EKG is interpreted by myself but EKG shows sinus rhythm at 80 bpm parable 176 QRS 95 QT interval 358 QTc is 394. Patient's EKG shows no ST segment ovation or depression. Was pt. sent in by a medical professional or institution (, PA, ADMISSIONS COUNSELOR, urgent care, hospital, or intermediate...) When possible be specific @ -Patient was sent in by his long term care social worker Did you speak to anyone other than the patient for history (EMS, parent, family, police, friend...)? What history was obtained from this source @ -No Did you review nursing and triage notes (agree or disagree)? Why? @ -I reviewed and agree with nursing and triage notes Were old charts reviewed (outside hosp., previous admission, EMS record, old EKG, old radiological studies, urgent care reports/EKG's, intermediate records)? Report findings @ -No old charts were reviewed Differential Diagnosis (chest pain, altered mental status, abdominal pain women, abdominal pain men, vaginal bleeding, weakness, fever, dyspnea, syncope, headache, dizziness, GI bleed, back pain, seizure, CVA, palpatations, mental health, musculoskeletal)? @ -Differential CVA Ischemic stroke, hemorrhagic stroke, brain tumor, atypical migraine, Wernicke's encephalopathy, seizure, multiple sclerosis, meningitis, encephalitis, hypogly cemia, Guillain-Prater, electrolytes disturbance, myasthenia gravis.... This is not meant to be an all-inclusive list EKG interpreted by me (3pts min.). @ -As above X-rays interpreted by me (1pt min.). @ -None done CT interpreted by me (1pt min.). @ -CT of the brain showed no acute abnormality CT angio of the head and neck shows no acute abnormality U/S interpreted by me (1pt. min.). @ -None done What testing was considered but not performed or refused? (CT, X-rays, U/S, labs)? Why? @ -None What meds were considered but not given or refused? Why? @ -None Did you discuss the management of the patient with other professionals (professionals i.e. Dr., PA, ADMISSIONS COUNSELOR, lab, RT, psych nurse, social media content specialist, country singer, teacher, mounted police officer, case checker)? Give summary @ -I spoke with Dr. South and he agreed to see the patient next week. Was smoking cessation discussed for >3mins.? @ -No Was critical care preformed (if so, how long)? @ -No Were there social determinants of health that impacted care today? How? (Homelessness, low income, unemployed, alcoholism, drug addiction, transportation, low edu. Level, literacy, decrease access to med. care, long term, rehab)? @ -No Was there de-escalation of care discussed even if they declined (Discuss DNR or withdrawal of care, Hospice)? DNR status @ -No What co-morbidities impacted this encounter? (DM, HTN, Smoking, COPD, CAD, Cancer, CVA, ARF, Chemo, Hep., AIDS, mental health diagnosis, sleep apnea, morbid obesity)? @ -None Was patient admitted / discharged? Hospital course, mention meds given and route, prescriptions, significant lab abnormalities, going to OR and other pertinent info. @ -Patient was given new prescriptions by Dr. South a while ago and he has yet to fill them at this time. Patient will call the office today and find out where those prescriptions are and will follow-up with Dr. South as soon as possible. Patient states that his double vision has been ongoing for a while and it only lasts a minute if he shuts when I goes away. Patient has had no symptoms while he was in the emergency department Undiagnosed new problem with uncertain prognosis? @ -No Drug Therapy requiring intensive monitoring for toxicity (Heparin, Nitro, Insulin, Cardizem)? @ -No Were any procedures done? @ -No Diagnosis/symptom? @ -Diplopia Acute, or Chronic, or Acute on Chronic? @ -Acute Uncomplicated (without systemic symptoms) or Complicated (systemic symptoms)? @ -Complicated Side effects of treatment? @ -No Exacerbation, Progression, or Severe Exacerbation? @ -No Poses a threat to life or bodily function? How? (Chest pain, [place], [place], pneumonia, PE, COPD, DKA, ARF, appy, cholecystitis, CVA, Diverticulitis, Homicidal, Suicidal, threat to staff... and all critical care pts) @ -No - Lab Data Result diagrams: 08/21/23 10:53 08/21/23 10:53 Lab Results 08/21/23 08/21/23 08/21/23 Range/Units 10:47 10:53 10:53 WBC 8.2 (3.8-10.6) k/uL RBC 5.65 (4.30-5.90) m/uL Hgb 16.8 (13.0-17.5) gm/dL Hct 50.7 (39.0-53.0) % MCV 89.8 (80.0-100.0) fL MCH 29.8 (25.0-35.0) pg MCHC 33.2 (31.0-37.0) g/dL RDW 13.5 (11.5-15.5) % Plt Count 164 (150-450) k/uL MPV 9.4 Neutrophils % 69 % Lymphocytes % 19 % Monocytes % 7 % Eosinophils % 2 % Basophils % 0 % Neutrophils # 5.6 (1.3-7.7) k/uL Lymphocytes # 1.6 (1.0-4.8) k/uL Monocytes # 0.6 (0-1.0) k/uL Eosinophils # 0.2 (0-0.7) k/uL Basophils # 0.0 (0-0.2) k/uL PT 9.8 L (10.0-12.5) sec INR 0.9 (<1.2) APTT 27.0 (22.0-30.0) sec Sodium (137-145) mmol/L Potassium (3.5-5.1) mmol/L Chloride (98-107) mmol/L Carbon Dioxide (22-30) mmol/L Anion Gap mmol/L BUN (9-20) mg/dL Creatinine (0.66-1.25) mg/dL Est GFR (CKD-EPI)AfAm (>60 ml/min/1.73 sqM) Est GFR (CKD-EPI)NonAf (>60 ml/min/1.73 sqM) Glucose (74-99) mg/dL POC Glucose (mg/dL) 197 H (70-110) mg/dL POC Glu Estimation Manager Jeanie Fonseca Calcium (8.4-10.2) mg/dL Total Bilirubin (0.2-1.3) mg/dL AST (17-59) U/L ALT (4-49) U/L Alkaline Phosphatase (38-126) U/L Creatine Kinase (55-170) U/L Troponin I (0.000-0.034) ng/mL Total Protein (6.3-8.2) g/dL Albumin (3.5-5.0) g/dL 08/21/23 08/21/23 Range/Units 10:53 10:53 WBC (3.8-10.6) k/uL RBC (4.30-5.90) m/uL Hgb (13.0-17.5) gm/dL Hct (39.0-53.0) % MCV (80.0-100.0) fL MCH (25.0-35.0) pg MCHC (31.0-37.0) g/dL RDW (11.5-15.5) % Plt Count (150-450) k/uL MPV Neutrophils % % Lymphocytes % % Monocytes % % Eosinophils % % Basophils % % Neutrophils # (1.3-7.7) k/uL Lymphocytes # (1.0-4.8) k/uL Monocytes # (0-1.0) k/uL Eosinophils # (0-0.7) k/uL Basophils # (0-0.2) k/uL PT (10.0-12.5) sec INR (<1.2) APTT (22.0-30.0) sec Sodium 136 L (137-145) mmol/L Potassium 4.6 (3.5-5.1) mmol/L Chloride 105 (98-107) mmol/L Carbon Dioxide 20 L (22-30) mmol/L Anion Gap 11 mmol/L BUN 18 (9-20) mg/dL Creatinine 0.57 L (0.66-1.25) mg/dL Est GFR (CKD-EPI)AfAm >90 (>60 ml/min/1.73 sqM) Est GFR (CKD-EPI)NonAf >90 (>60 ml/min/1.73 sqM) Glucose 197 H (74-99) mg/dL POC Glucose (mg/dL) (70-110) mg/dL POC Glu Estimation Manager ID Calcium 9.0 (8.4-10.2) mg/dL Total Bilirubin 0.7 (0.2-1.3) mg/dL AST 42 (17-59) U/L ALT 72 H (4-49) U/L Alkaline Phosphatase 98 (38-126) U/L Creatine Kinase 85 (55-170) U/L Troponin I <0.012 (0.000-0.034) ng/mL Total Protein 6.7 (6.3-8.2) g/dL Albumin 4.2 (3.5-5.0) g/dL Disposition Clinical Impression: Diplopia Disposition: HOME SELF-CARE Condition: Good Instructions (If sedation given, give patient instructions): Diplopia (ED) Is patient prescribed a controlled substance at d/c from ED?: No Referrals: Harjit South MD [Primary Care Provider] - 1-2 days Time of Disposition: 13:11
[2023-08-21 11:16] LABS: ALT 72 U/L (4-49); AST 42 U/L (17-59); African American GFR (CKD) >90 (>60 ml/min/1.73 sqM); Albumin 4.2 g/dL (3.5-5.0); Alkaline Phosphatase 98 U/L (38-126); Anion Gap 11 mmol/L; Blood Urea Nitrogen 18 mg/dL (9-20); Carbon Dioxide 20 mmol/L (22-30); Chloride 105 mmol/L (98-107); Creatine Kinase 85 U/L (55-170); Glucose 197 mg/dL (74-99); Non-African American GFR(CKD) >90 (>60 ml/min/1.73 sqM); Potassium 4.6 mmol/L (3.5-5.1); Sodium 136 mmol/L (137-145); Total Bilirubin 0.7 mg/dL (0.2-1.3); Total Protein 6.7 g/dL (6.3-8.2)
[2023-08-21 11:17] LABS: Basophils % (A) 0 %; Eosinophils # (A) 0.2 k/uL (0-0.7); Eosinophils % (A) 2 %; HCT 50.7 % (39.0-53.0); HGB 16.8 gm/dL (13.0-17.5); Lymphocytes # (A) 1.6 k/uL (1.0-4.8); Lymphocytes % (A) 19 %; MCH 29.8 pg (25.0-35.0); MCHC 33.2 g/dL (31.0-37.0); MCV 89.8 fL (80.0-100.0); Mean Platelet Volume 9.4; Monocytes # (A) 0.6 k/uL (0-1.0); Monocytes % (A) 7 %; Neutrophils # (A) 5.6 k/uL (1.3-7.7); Neutrophils % (A) 69 %; Platelet Count 164 k/uL (150-450); RBC 5.65 m/uL (4.30-5.90); RDW 13.5 % (11.5-15.5); WBC 8.2 k/uL (3.8-10.6)
[2023-08-21 11:23] LABS: INR 0.9 (<1.2); Prothrombin Time 9.8 sec (10.0-12.5)
[2023-08-21 11:32] VITALS: RESP 18
[2023-08-21] MEDS: SODIUM CHLORIDE 0.9% 500 ML 500 ML IV STA (11:38)
--- NOTE | 2023-08-21 11:44 | XR ---
EXAMINATION TYPE: XR chest 2V DATE OF EXAM: 08/21/2023 11:10 AM CLINICAL INDICATION:Male, 58 years old with history of altered mental status; [facility] COMPARISON: Chest radiographs from 08/21/2023. TECHNIQUE: XR chest 2V Frontal and lateral views of the chest. FINDINGS: Lungs/Pleura: There is no evidence of pleural effusion, focal consolidation, or pneumothorax. Pulmonary vascularity: Unremarkable. Heart/mediastinum: Cardiomediastinal silhouette is unremarkable. Musculoskeletal: No acute osseous pathology. IMPRESSION: Basilar atelectasis., No evidence for acute process.
--- NOTE | 2023-08-21 12:09 | CT ---
EXAMINATION TYPE: CT brain wo con DATE OF EXAM: 08/21/2023 COMPARISON: 06/04/2021 INDICATION: vision changes DLP: 1084 mGycm, Automated exposure control for dose reduction was used. CONTRAST: None CT of the brain is performed utilizing 3 mm thick sections through the posterior fossa and 3 mm thick sections through the remaining calvarium. Study is performed within 24 hours of arrival to the hosp ital. No abnormal hyperdensity is present to suggest an acute intracranial hemorrhage. No mass lesion is evident. No acute infarcts are evident. There is some scattered hypodensity within the left cerebellum. This i s an interval change. However, this appears to be old ischemic change. Ventricles and sulci are appropriate for the patient age. Paranasal sinuses and mastoid air cells within the [id number] are clear. IMPRESSION: 1. Appears to be some old ischemic type change within the inferior left cerebellum. 2. No suspicious acute changes radiographically apparent. Follow-up MRI can be performed as clinicall y indicated.
--- NOTE | 2023-08-21 12:30 | CT ---
EXAMINATION TYPE: CT angio head neck DATE OF EXAM: 08/21/2023 HISTORY: vision changes COMPARISON: None CT DLP: 863.3 mGycm. Automated Exposure Control for Dose Reduction was Utilized. TECHNIQUE: CTA scan of the neck is performed with IV Contrast, patient injected with 65 mL of Isovue 370, axial images are obtained, coronal and sagittal reformatted images are reviewed. Three-D recons tructed images are created on an independent workstation and reviewed. Source images are reviewed. FINDINGS: Carotid/Vascular Structures: There is a 3 vessel arch. Common carotid arteries bifurcate into internal and external carotid arteries without significant lea w limiting stenosis. Some mild wall calcification is present Left vertebral artery may be dominant.. Internal carotid arteries and vertebral arteries are patent to the skull base. Cervical of Rashid: Vertebral basilar system appears normal. Posterior cerebral vasculature is unrema rkable. Internal carotid arteries bifurcate normally into A1 and M1 segments. A2 segments are normal. The anterior communicating artery is patent. The right posterior communicating artery is patent. The left posterior communicating artery is patent. IMPRESSION: 1. No flow-limiting stenosis bilateral carotid bifurcations. 2. Normal [place] of Rashid NASCET criteria was used in interpretation of this exam?
[2023-08-21 12:54] VITALS: PULSE 85
[2023-08-21 13:33] VITALS: BP 150/77; TEMP 98
== END 2023-08-21 13:14 | disposition home or self-care (01) ==
LOC: EC 10:25
DX: H53.2 Diplopia (principal); F17.200 Nicotine dependence, unspecified, uncomplicated
CPT/HCPCS: 99284; 36415; 93005; 80053; 82550; 84484; 85025; 85610; 85730; 71046; 70496; 70450; 70498; 99285; Q9967

== ENCOUNTER → 2024-12-01 | Outpatient (CLI) | payer OTHER ==
--- NOTE | 2024-12-01 13:52 | CTL ---
EXAMINATION TYPE: CT Low Dose Lung DATE OF EXAM ORDERED: 12/01/2024 COMPARISON: None CLINICAL INDICATION: Male, 59 years old with history of Z12.2, F17.210 NICOTINE DEPENDENCE; PHH, hist ory of smoking, Lung cancer screening, History of Smoking/tobacco use. TECHNIQUE: Low dose computed tomography scan was performed through the chest at 1 mm thick sections a nd reconstructed images in multiple planes at 1 mm and [address] DLP: 125.[address] CTDI: 3.4 mGy Automated exposure control for dose reduction was used. CT DIAGNOSTIC QUALITY: Satisfactory Findings: There are 2 micronodules in the left lung. There is no suspicious lung mass or nodule.. There is no lung consolidation or abnormal interstitial density. There is no pleural effusion or pneumothorax. The great vessels and heart are normal in size. There is no mediastinal, hilar or axillary adenopathy. Limited scanning through the upper abdomen reveals no gross abnormality. There are no focal osseous lesions. IMPRESSION: 1. Lung RADS category 2 benign. Continue routine screening at yearly intervals. 2. No acute cardiopu lmonary disease. [facility], , 12/01/2024 1:50 PM
== END | disposition home or self-care (01) ==
LOC: RADCTMAIN 12:10
PROVIDERS: ATTEND Internal Medicine
DX: Z12.2 Encounter for screening for malignant neoplasm of respiratory organs (principal); F17.210 Nicotine dependence, cigarettes, uncomplicated
CPT/HCPCS: 71271